=== PATIENT | female | born 1990 | race Caucasian/White ===

== ENCOUNTER 2021-09-16 01:59 | Inpatient (IN) | payer MEDICAID, SELFPAY ==
[2021-09-16 02:07] VITALS: BP 117/78; PULSE 83; RESP 17; TEMP 37.1; O2SAT 99
[2021-09-16 02:08] VITALS: BMI 23.0
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
[2021-09-16] MEDS: trazodone 50 mg Tablet PO (02:23)
[2021-09-16 05:49] VITALS: BP 117/78; PULSE 83; RESP 17; TEMP 37.1
[2021-09-16 06:20] VITALS: BP 115/76; PULSE 69; RESP 16; TEMP 36.7; O2SAT 97
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
--- NOTE | 2021-09-16 08:35 | PC.NURSE ---
AM ASSESSMENT IN ROOM RESTING, AROUSES TO VOICE. DENIES SI/HI AND AVH AT THIS TIME. DOES C/O URGENCY WHEN URINATING. REPORTS SHE HAS NOT HAD A PERIOD IN 2 MONTHS. PATIENT DOES STATE THE NURSE WHERE SHE CAME FROM COMPLETED A TEST BUT SHE IS CONVINCED THEY DID NOT. INFORMED THIS RN HAS NOT SEEN ANY PAPERS WITH A TEST BUT I WOULD LOOK AND LET THE DRCarla KNOW WHEN HE IS HERE FOR ROUNDS. STATES SHE SLEPT WELL.
[2021-09-16] MEDS: multivitamin therapeutic Tablet 1 TAB PO (09:20)
[2021-09-16] MEDS: folic acid 1 mg Tablet PO (09:20)
[2021-09-16] MEDS: thiamine 100 mg Tablet PO (09:20)
[2021-09-16] MEDS: nicotine 2 mg Gum BUCCAL (10:56)
[2021-09-16] MEDS: blistex lip oint 7 gm Tube 1 APPLIC TOPICAL (10:56)
[2021-09-16 14:00] VITALS: BP 119/79; PULSE 96; RESP 18; TEMP 36.8; O2SAT 97
[2021-09-16] MEDS: hyDROXYzine 25 mg Capsule 50 MG PO (16:56)
--- NOTE | 2021-09-16 16:57 | PC.NURSE ---
PRN MEDICATION PT TO NURSES STATION C/O ANXIETY. VISTARIL GIVEN ORDERED. BACK TO DAY AREA TO WATCH TV WITH PEERS
[2021-09-16 20:00] VITALS: BP 116/82; PULSE 88; RESP 18; TEMP 36.8; O2SAT 99
[2021-09-16] MEDS: fluoxetine 20 mg Capsule PO (21:27)
[2021-09-16] MEDS: ARIPiprazole 10 mg Tablet PO (21:27)
[2021-09-16] MEDS: LORazepam 2 mg Tablet PO (21:29)
--- NOTE | 2021-09-17 00:03 | PC.NURSE ---
PRN ADMIN: Patient scored 12 on CIWA, PRN ATIVAN PO given per protocol.
[2021-09-17 06:00] VITALS: BP 109/78; PULSE 81; RESP 12; TEMP 36.7; O2SAT 99
--- NOTE | 2021-09-17 07:39 | W.PM.NPUPNS ---
Subjective NPU Subjective: Patient presents today reporting that she is doing okay. She is adjusting to the medication and denies any specific side effects. We discussed the fact that the treatment team would be available tomorrow to look in her situation and identify ways we might be able to assist her overall. Mental Status Exam MSE Comments: This is a slender possibly underweight female in hospital scrubs with adequate grooming and eye contact. No abnormal movements. Cooperative with exam in mild distress. Speech was slightly decreased rate and volume. Mood described as okay, affect congruent. Thought process, organized. Thought content: patient denies any suicidal or homicidal ideations, no delusions noted but she endorses paranoia, and denies any auditory or visual hallucinations. Attention and concentration are intact and memory is reliable but none were formally tested. She is alert and oriented three times. Insight and judgment appear fair. Impulse control is limited. Vitals/I&O/Wt Last Vital Signs Temp 98.1 F 09/17/21 06:00 Pulse 81 09/17/21 06:00 Resp 12 09/17/21 06:00 BP 109/78 09/17/21 06:00 Pulse Ox 99 09/17/21 06:00 Weight last 48 hrs Weight 58.967 kg A&P Assessment and plan (1) History of schizophrenia: Status: Acute (2) Anxiety: Status: Acute (3) Major depressive disorder: Status: Acute Plan This is an almost 30 year old female with past trauma, reports of a history of schizophrenia, depression, anxiety and addiction who presents reporting she needs to get back on medication to help with her symptom clusters. Continue current medications. Started Prozac 20 mg po qam and Abilify 10 mg po qam Encourage individual, group and milieu therapy Continue q-15 minute check for safety Recommend sober living treatment at the highest level of care to which the patient is willing to commit. Involuntary Hold Information 96 Hour Hold: 96 Hour Involuntary Admission: No Attestations NPU Medical Necessity Statement*: Inpatient hospitalization is medically necessary and the clinically appropriate intervention at this time. We will monitor medications and make changes as indicated. Likely length of stay is 2-4 days. Coding Level of Care Code Acute Diesel Maintenance Technician for Kenny Garcia Diagnoses History of schizophrenia Z86.59 Anxiety F41.9 Major depressive disorder F32.9
--- NOTE | 2021-09-17 09:32 | PC.NURSE ---
ASKED PATIENT MULTIPLE TIMES IF SHE WOULD GET UP OUT OF BED AND TAKE HER MEDICATIONS. PATIENT STATES SHE DOES NOT WANT TO GET UP AND TAKE HER AM MEDS. REQUESTED THAT THIS RN WAIT TO GIVE MEDICATIONS WHEN SHE GETS UP. EDUCATED AND EXPLAINED TO PATIENT THAT DEPENDING ON WHAT MEDICATIONS SHE WAS TAKING THAT MAY NOT BE POSSIBLE. INFORMED HER SHE AT LEAST NEEDED TO GET UP AND TAKE HER PROZAC AND ABILIFY. PT ROLLED OVER AND WENT BACK TO SLEEP. WILL CONTINUE TO ENCOURAGE PATIENT TO TAKE MEDICATIONS.
[2021-09-17] MEDS: ARIPiprazole 10 mg Tablet PO (11:40)
[2021-09-17] MEDS: nicotine 2 mg Gum BUCCAL (11:40)
[2021-09-17] MEDS: thiamine 100 mg Tablet PO (11:41)
[2021-09-17] MEDS: fluoxetine 20 mg Capsule PO (11:41)
[2021-09-17] MEDS: multivitamin therapeutic Tablet 1 TAB PO (11:41)
[2021-09-17] MEDS: folic acid 1 mg Tablet PO (11:41)
[2021-09-17 14:00] VITALS: BP 98/67; PULSE 74; RESP 16; TEMP 36.9; O2SAT 99
[2021-09-17 20:44] VITALS: BP 109/77; PULSE 89; RESP 18; O2SAT 90
[2021-09-17] MEDS: OLANZapine 5 mg ODT PO (20:45)
[2021-09-17] MEDS: trazodone 50 mg Tablet PO (22:03)
--- NOTE | 2021-09-18 00:57 | PC.NURSE ---
PRN ADMIN Patient c/o anxiety, requested something to assist. PRN Zydis given as ordered with noted effectiveness. Patient later requested something to help her sleep, PRN trazodone given as ordered with noted effectiveness.
[2021-09-18 06:00] VITALS: BP 115/76; PULSE 78; RESP 14; O2SAT 99
[2021-09-18] MEDS: multivitamin therapeutic Tablet 1 TAB PO (08:37)
[2021-09-18] MEDS: folic acid 1 mg Tablet PO (08:37)
[2021-09-18] MEDS: ARIPiprazole 10 mg Tablet PO (08:37)
[2021-09-18] MEDS: fluoxetine 20 mg Capsule PO (08:37)
[2021-09-18] MEDS: thiamine 100 mg Tablet PO (08:37)
[2021-09-18] MEDS: hyDROXYzine 25 mg Capsule 50 MG PO (10:24)
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
[2021-09-18 13:57] VITALS: BP 123/78; PULSE 94; RESP 18; TEMP 36.6; O2SAT 99
--- NOTE | 2021-09-18 18:51 | W.PM.NPUPNS ---
Subjective NPU Subjective: Patient resents today reporting that things are going a little better. She reports that she feels she is responding well to the medication. She had opportunity meet with the social work team and they gave her some paperwork in place that she can call. We discussed continue to work with the social work team and developing a plan for discharge this week. Mental Status Exam MSE Comments: This is a slender possibly underweight female in hospital scrubs with adequate grooming and eye contact. No abnormal movements. Cooperative with exam in no acute distress. Speech was slightly decreased rate and volume. Mood described as better, affect congruent. Thought process, organized. Thought content: patient denies any suicidal or homicidal ideations, no delusions noted but she endorses paranoia, and denies any auditory or visual hallucinations. Attention and concentration are intact and memory is reliable but none were formally tested. She is alert and oriented x 3. Insight and judgment appear fair. Impulse control is limited. Vitals/I&O/Wt Last Vital Signs Temp 98.1 F 09/18/21 20:37 Pulse 91 09/18/21 20:37 Resp 16 09/18/21 20:37 BP 118/79 09/18/21 20:37 Pulse Ox 96 09/18/21 20:37 A&P Assessment and plan (1) History of schizophrenia: Status: Acute (2) Anxiety: Status: Acute (3) Major depressive disorder: Status: Acute Plan This is an almost 30 year old female with past trauma, reports of a history of schizophrenia, depression, anxiety and addiction who presents reporting she needs to get back on medication to help with her symptom clusters. Continue current medications. Started Prozac 20 mg po qam and Abilify 10 mg po qam Encourage individual, group and milieu therapy Continue q-15 minute check for safety Recommend sober living treatment at the highest level of care to which the patient is willing to commit. Involuntary Hold Information 96 Hour Hold: 96 Hour Involuntary Admission: No Attestations NPU Medical Necessity Statement*: Inpatient hospitalization is medically necessary and the clinically appropriate intervention at this time. We will monitor medications and make changes as indicated.? Likely length of stay is 1-3 days. Coding Level of Care Code Acute Global Implementation Manager for Kenny Garcia Diagnoses History of schizophrenia Z86.59 Anxiety F41.9 Major depressive disorder F32.9
[2021-09-18 20:37] VITALS: BP 118/79; PULSE 91; RESP 16; TEMP 36.7; O2SAT 96
[2021-09-18] MEDS: trazodone 50 mg Tablet PO (20:53)
[2021-09-18] MEDS: nicotine 2 mg Gum BUCCAL (22:05)
--- NOTE | 2021-09-19 04:27 | PC.NURSE ---
AT START OF SHIFT PT UP IN DAYROOM SOCIALIZING WITH OTHERS. GOOD INTERACTION NOTED. NO C/O VOICED. DENIED SI/HI AND AVH. PT IS IN BED RESTING WITH EYES CLOSED AT THIS TIME. NO DISTRESS NOTED.
[2021-09-19 06:00] VITALS: BP 114/83; PULSE 105; RESP 16; TEMP 36.6; O2SAT 95
[2021-09-19] MEDS: hyDROXYzine 25 mg Capsule 50 MG PO (08:41)
[2021-09-19] MEDS: nicotine 2 mg Gum BUCCAL ×2 (08:41→11:46)
[2021-09-19] MEDS: ARIPiprazole 10 mg Tablet PO (08:41)
[2021-09-19] MEDS: folic acid 1 mg Tablet PO (08:42)
[2021-09-19] MEDS: thiamine 100 mg Tablet PO (08:42)
[2021-09-19] MEDS: multivitamin therapeutic Tablet 1 TAB PO (08:42)
[2021-09-19] MEDS: fluoxetine 20 mg Capsule PO (08:42)
[2021-09-19] MEDS: OLANZapine 5 mg ODT PO (11:46)
[2021-09-19 14:00] VITALS: BP 114/81; PULSE 97; RESP 16; TEMP 36.1; O2SAT 99
--- NOTE | 2021-09-19 16:51 | P.NPUPN_ITS ---
Subjective NPU Subjective: Patient presents today for disimpact patient. She reports that it was Discharged to go live with a friend but she is working with the treatment team to find some treatment related housing options. She reports that the medications are working fine and she is eating and sleeping better. She reports that she is somewhat sad and some of her friends from the inpatient unit starting to go home but reports she also realizes that finer things are getting better for all of them. Mental Status Exam MSE Comments: This is a slender possibly underweight female in hospital scrubs with adequate grooming and eye contact. No abnormal movements. Cooperative with exam in no acute distress. Speech was slightly decreased rate and volume. Mood described as better, but feeling sentimental affect congruent. Thought process, organized. Thought content: patient denies any suicidal or homicidal ideations, no delusions noted or reported, and denies any auditory or visual hallucinations. Attention and concentration are intact and memory is reliable but none were formally tested. She is alert and oriented x 3. Insight and judgment appear fair. Impulse control is limited. ? Vitals/I&O/Wt Last Vital Signs Temp 97 F L 09/19/21 14:00 Pulse 97 09/19/21 14:00 Resp 16 09/19/21 14:00 BP 114/81 09/19/21 14:00 Pulse Ox 99 09/19/21 14:00 A&P Assessment and plan (1) History of schizophrenia: Status: Acute (2) Anxiety: Status: Acute (3) Major depressive disorder: Status: Acute Plan This is an almost 30 year old female with past trauma, reports of a history of schizophrenia, depression, anxiety and addiction who presents reporting she needs to get back on medication to help with her symptom clusters. Continue current medications. Started Prozac 20 mg po qam and Abilify 10 mg po qam Encourage individual, group and milieu therapy Continue q-15 minute check for safety Recommend sober living treatment at the highest level of care to which the patient is willing to commit. Involuntary Hold Information 96 Hour Hold: 96 Hour Involuntary Admission: No Attestations NPU Medical Necessity Statement*: Inpatient hospitalization is medically necessary and the clinically appropriate intervention at this time. We will monitor medications and make changes as indicated.? Likely length of stay is 1-3 days. Coding Level of Care Code Acute Life Skills Specialist for Kenny Garcia Diagnoses History of schizophrenia Z86.59 Anxiety F41.9 Major depressive disorder F32.9
--- NOTE | 2021-09-19 17:08 | PC.SOCIAL ---
Patient attended and participated in group.
[2021-09-19 21:07] VITALS: BP 98/61; PULSE 89; RESP 16; TEMP 36.8; O2SAT 98
[2021-09-20 05:38] VITALS: BP 115/77; PULSE 86; RESP 17; TEMP 36.7; O2SAT 99
[2021-09-20] MEDS: fluoxetine 20 mg Capsule PO (09:10)
[2021-09-20] MEDS: thiamine 100 mg Tablet PO (09:10)
[2021-09-20] MEDS: ARIPiprazole 10 mg Tablet PO (09:10)
[2021-09-20] MEDS: folic acid 1 mg Tablet PO (09:10)
[2021-09-20] MEDS: nicotine 2 mg Gum BUCCAL (09:10)
[2021-09-20] MEDS: multivitamin therapeutic Tablet 1 TAB PO (09:10)
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
[2021-09-20 12:17] VITALS: BP 115/77; PULSE 86; RESP 17; TEMP 36.7; O2SAT 99
== END 2021-09-20 15:30 | disposition home or self-care (01) | DRG 885 ==
PROVIDERS: Admitting Provider Psychiatry & Neurology Psychiatry; Visit Provider Psychiatry & Neurology Psychiatry
DX: F25.1 Schizoaffective disorder, depressive type (principal); R45.851 Suicidal ideations; F17.210 Nicotine dependence, cigarettes, uncomplicated; F10.10 Alcohol abuse, uncomplicated; F12.90 Cannabis use, unspecified, uncomplicated; F14.90 Cocaine use, unspecified, uncomplicated; Z59.00 Homelessness unspecified; F41.9 Anxiety disorder, unspecified
CPT/HCPCS: 81025; 97150; 97165

== ENCOUNTER 2025-04-08 11:01 | Outpatient (CLI) | payer MEDICAID, SELFPAY ==
--- NOTE | 2025-04-08 11:11 | MM_ITS ---
WS: [id number] BILATERAL 3D TOMOSYNTHESIS DIGITAL DIAGNOSTIC MAMMOGRAPHY WITH CAD CLINICAL INFORMATION: BREAST LUMP ON R SIDE @ 8 OCLOCK POSITON HISTORY: RIGHT breast lump COMPARISON: None. TECHNIQUE: Bilateral CC, MLO, and ML views. FINDINGS: The breasts are composed of heterogeneous fibroglandular density, which can limit the detection of small underlying mass lesions. No suspicious focal mass, asymmetry, calcifications, or architectural distortion. No evidence of malignancy. ULTRASOUND BREAST RIGHT TECHNIQUE: Ultrasound right breast focused area of concern. CLINICAL INFORMATION: BREAST LUMP ON R SIDE @ 8 OCLOCK POSITON FINDINGS: Ultrasound RIGHT breast area of palpable at the 9 o'clock position 4 cm from the nipple. Small superficial complex cystic lesion with some internal debris likely represents a small complex cyst or sebaceous cyst. This measures approximately 5 x 5 x 4 mm and has a benign appearance. No other suspicious findings. MM/MM diag BI tomosynthesis [id number] IMPRESSION: DENSITY: The breasts are heterogeneously dense, which may obscure small masses. BI-RADS: 2 - Benign FOLLOW UP: Age 40 Recommend annual screening mammography age 40
== END 2025-04-08 11:02 | disposition home or self-care (01) ==
PROVIDERS: Visit Provider Nurse Practitioner Family
DX: N63.24 Unspecified lump in the left breast, lower inner quadrant (principal); R92.323 Mammographic fibroglandular density, bilateral breasts; R92.333 Mammographic heterogeneous density, bilateral breasts; N64.89 Other specified disorders of breast; N63.15 Unspecified lump in the right breast, overlapping quadrants
CPT/HCPCS: 76642; 77062; G0279